=== PATIENT | female | born 1960 | race Caucasian/White ===

== ENCOUNTER 2019-05-17 06:28 | Day surgery (SDC) | payer MEDICARE, MEDICAID ==
[2019-05-17] VITALS (10 sets, daily range): BP systolic 95–135; BP diastolic 53–98; Ht 165.1 cm; Wt 60.9 kg
[~2019-05-17] VITALS: Ht 165.1 cm; Wt 60.9 kg
[~2019-05-17 06:28] MED LIST: CYCLOBENZAPRINE10 MG PO; IBUPROFEN800 MG PO; LAMICTAL100 MG PO; MYSOLINE 50 MG50 MG PO; NAPROSYN500 MG PO; ZOCOR10 MG PO
[2019-05-17 07:03] LABS: HEMATOCRIT 44.9 % (36.0-48.0); HEMOGLOBIN 15.2 g/dL (12-16); MCH 31.5 pg (26.0-34.0); MCHC 33.9 g/dL (31.0-37.0); MEAN PLATELET VOLUME 10.1 fL (7.4-10.4); RBC 4.83 10x6/uL (4.00-5.40); RDW 12.8 % (11.5-14.5); WBC 8.5 10x3/uL (4.8-10.8)
--- NOTE | 2019-05-17 19:00 | NUR ---
SHIFT ASSESSMENT COMPLETED. PT CARE ASSUMED. MONITORS ON AND WORKING, PY AWAKE AND ALERT, NECK INCISION CDI, CALL LIGHT WITHIN REACH, SEE FLOW SHEET FOR FURTHER DETAILS. WILL CONTINUE TO OBSERVE.
--- NOTE | 2019-05-17 21:00 | NUR ---
PT UP TO BEDSIDE COMMODE WITH MINIMAL ASSISTANCE, SOFT CERVIAL COLLAR ON. MONITORS ON AND WORKING, VITALS STABLE, PT THEN ASSISTED BACK INTO BED, PT TOLERATED WELL. CALL LIGHT WITHIN REACH, WILL CONTINUE TO OBSERVE.
--- NOTE | 2019-05-17 23:00 | NUR ---
PT LYING IN BED RESTING, MONITORS ON AND WORKING, VITALS STABLE,CALL LIGHT WITHIN REACH, SEE FLOW SHEET FOR FURTHER DETAILS. WILL CONTINUE TO OBSERVE.
[2019-05-18] VITALS (14 sets, daily range): BP systolic 98–119; BP diastolic 58–81
--- NOTE | 2019-05-18 01:00 | NUR ---
PT UP TO BEDSIDE COMMODE WITH MINIMAL ASSIST, PT TOLERATED WELL. MONITORS ON AND WORKING, VITALS STABLE, CALL LIGHT WITHIN REACH, WILL CONTINUE TO OBSERVE.
--- NOTE | 2019-05-18 03:00 | NUR ---
PT LYING IN BED RESTING, MONITORS ON AND WORKING, VITALS STABLE, CALL LIGHT WITHIN REACH, SEE FLOW SHEET FOR FURTHER DETAILS. WILL CONTINUE TO OBSERVE.
--- NOTE | 2019-05-18 05:00 | NUR ---
NO CHANGES, MONITORS ON AND WORKING, VITALS STABLE, CALL LIGHT WITHIN REACH, WILL CONTINUE TO OBSERVE.
[2019-05-18] MEDS ORDERED: HYDROCODON-ACE1 EA10 PO (12:58)
--- NOTE | 2019-05-29 12:48 | OP ---
PATIENT NAME: FRANK JOSE MEDICAL RECORD: [id number] :58 LOCATION:[facility] ADMISSION DATE: SURGEON: HARJINDER LO MD DATE OF OPERATION: 05/17/2019 DATE OF SERVICE: 05/17/2019 PREOPERATIVE DIAGNOSES: Osteophyte formation and disc herniation at C5-C6 and C6-C7 with C6 and C7 radiculopathies. POSTOPERATIVE DIAGNOSES: Osteophyte formation and disc herniation at C5-C6 and C6-C7 with C6 and C7 radiculopathies. PROCEDURE: Anterior cervical discectomy and fusion at C5-C6 and C6-C7 with Zavation anterior cervical plate and screws, a separate PEEK interbody cages at C5-C6 and C6-C7 and separate anterior cervical plate. SURGEON: Harjinder Lo MD DESCRIPTION AND TECHNIQUE: After induction of general endotracheal anesthesia, the patient was prepped and draped in usual sterile fashion. The C5-C6 interspace was identified with fluoroscopic x-ray and a freer dissector on the surface of the skin. After infiltration of 1:100,000 epinephrine and 1% lidocaine, a transverse skin incision was carried out from the midline to the sternocleidomastoid muscle. The platysma was divided with #15-blade. Using blunt and sharp dissection with Metzenbaum scissors, I proceeded in the avascular plane, medial to the carotid sheath. The C5-C6 interspace was identified with fluoroscopic x-ray and a spinal needle. The longus colli muscles were elevated from bodies of C5, C6, and C7. [place] distracting pins were placed in the bodies of C5, C6 and C7. Disc space was incised with a #11 blade and disc material was removed with pituitary rongeurs and curettes. The posterior longitudinal ligament was removed with Cloward rongeurs under microscopic illumination. Osteophytes were drilled away posteriorly with Midas-Wild drill. Following this, the dura was decompressed well. A PEEK interbody cage was placed at the C5-C6 and C6-C7 interspaces. Prior to this, it was filled with Lxei bone allograft with stem cells. Next, a separate Zavation anterior cervical plate was used to span the C5-C6 and C6-C7 interspaces. Self-drilling screws were placed through the holes in the plate. Good position of the hardware was confirmed with fluoroscopic x-ray. The locking cams were tightened down over the screw heads. Meticulous hemostasis was maintained throughout the wound. The wound was irrigated with copious amounts of Ancef irrigant solution. The platysma was closed with interrupted 4-0 Vicryl suture. The subdermal layer was closed with interrupted 4-0 Vicryl suture. The skin was reapproximated with Steri-Strips and benzoin. A sterile dressing was applied to the wound. The patient was awakened in good condition and taken to recovery. All counts were reported as correct. Estimated blood loss was minimal. TRANSINT:[id number] Voice Confirmation ID: [id number] DOCUMENT ID: [id number] OPERATIVE REPORT [id number] FRANK JOSE JOHN MD at 1248 CC: [id number] DICTATION DATE: 05/29/19845 PRODUCT MANAGER E COMMERCE: 05/29/19 1154 [facility] 05/18/[address] [address]
== END 2019-05-18 14:05 | disposition home or self-care (01) ==
LOC: D.OPS 06:28 → D.ICU 06:28 → D.PAN 09:00 → D.OPS 09:45 → D.ICU 14:25 → D.OPS 05-18 14:05
PROVIDERS: Anesthesiology; ATTEND Neurological Surgery
DX: M50.123 Cervical disc disorder at C6-C7 level with radiculopathy (principal); G56.21 Lesion of ulnar nerve, right upper limb; E78.5 Hyperlipidemia, unspecified

== ENCOUNTER 2019-06-07 06:34 | Day surgery (SDC) | payer MEDICARE, MEDICAID ==
[~2019-06-07] VITALS: Ht 165.1 cm; Wt 57.2 kg
[~2019-06-07 06:34] MED LIST changes: +HYDROCODON-ACE1 EA10 PO
[2019-06-07 06:57] LABS: HEMATOCRIT 42.9 % (36.0-48.0); HEMOGLOBIN 14.4 g/dL (12-16); MCHC 33.6 g/dL (31.0-37.0); MCV 92.3 fL (80.0-100.0); MEAN PLATELET VOLUME 9.7 fL (7.4-10.4); RBC 4.65 10x6/uL (4.00-5.40)
[2019-06-07 07:52] VITALS: BP 105/69; Ht 165.1 cm; Wt 57.2 kg
[2019-06-07] MEDS ORDERED: HYDROCODON-ACE1 EA10 PO (11:41)
--- NOTE | 2019-06-07 12:20 | NUR ---
1200 IV REMOVED AND PRESSURE HELD
--- NOTE | 2019-06-14 12:52 | OP ---
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 PROCEDURE: Right ulnar nerve release. SURGEON: Harjinder Lo MD DESCRIPTION OF TECHNIQUE: After induction of general endotracheal anesthesia, the patient's left upper extremity was prepped and draped in usual sterile fashion. Tourniquet was inflated. After exsanguination with an Coy wrap, a curvilinear incision was carried down over the olecranon using sharp dissection with a #15 blade scalpel. The soft tissues were dissected sharply down to the sheath to the ulnar nerve. This was proximally and this was followed distally through the cubital tunnel with microdissection using a scalpel and microscissors until it was distal to the cubital tunnel. The ulnar nerve appeared to be compressed by scar tissues. This was released with sharp dissection. Following this, the ulnar nerve was completely decompressed. The tourniquet was deflated and meticulous hemostasis was maintained throughout the wound. The wound edges subdermal were reapproximated subdermal stitch with a 4-0 Vicryl suture. The skin was closed with ronel. A sterile dressing was applied to the wound. The patient was awakened in good condition and taken to recovery. All counts were reported as correct. Estimated blood loss was minimal. TRANSINT:[id number] Voice Confirmation ID: [id number] DOCUMENT ID: [id number] HARJINDER LO MD at 1252 CC: [id number] DICTATION DATE: 06/14/19 1055 REGULATOR TESTER: 06/14/19 1224 [facility] 06/07/19 [place] [address]
== END 2019-06-07 12:20 | disposition home or self-care (01) ==
LOC: D.OPS 06:34 → D.PAN 09:15 → D.OPS 12:20
PROVIDERS: Anesthesiology; ATTEND Neurological Surgery
DX: G56.21 Lesion of ulnar nerve, right upper limb (principal); E78.5 Hyperlipidemia, unspecified